=== PATIENT | male | born 1945 | race Caucasian/White ===

== ENCOUNTER → 2016-10-18 | Outpatient (CLI) | payer OTHER ==
[~2016-10-18] VITALS: Ht 190.5 cm; Wt 133.8 kg
[~2016-10-18] MED LIST: ACYCLOVIR400 MG PO; APRESOLINE100 MG PO; BYSTOLIC10 MG PO; CARVEDILOL25 MG PO; CELEBREX200 MG PO; FUROSEMIDE40 MG PO; LISINOPRIL40 MG PO; PANTOPRAZOLE SO40 MG PO; PRAVASTATIN SOD80 MG PO; SIMVASTATIN40 MG PO
== END | disposition home or self-care (01) ==
LOC: AMB 11:42
DX: K22.70 Barrett's esophagus without dysplasia (principal); K21.9 Gastro-esophageal reflux disease without esophagitis; Z86.010 Personal history of colon polyps; I11.0 Hypertensive heart disease with heart failure; I50.9 Heart failure, unspecified; I25.10 Atherosclerotic heart disease of native coronary artery without angina pectoris; I25.2 Old myocardial infarction; Z80.0 Family history of malignant neoplasm of digestive organs; Z87.891 Personal history of nicotine dependence; Z79.899 Other long term (current) drug therapy
CPT/HCPCS: 88305; 93005; C1726; J2250

== ENCOUNTER 2017-09-03 08:22 | Emergency (ER) | payer OTHER ==
[~2017-09-03] VITALS: Ht 190.5 cm; Wt 130.2 kg
[2017-09-03] MEDS ORDERED: PERCOCET 5/31 TABLET PO (11:28)
[2017-09-03] MEDS ORDERED: MEDROL DOSEPAK4 MG PO (11:28)
[2017-09-03 12:14] VITALS: BP 153/79
== END 2017-09-03 12:15 | disposition home or self-care (01) ==
LOC: EME 08:22
DX: M51.17 Intervertebral disc disorders with radiculopathy, lumbosacral region (principal); J44.9 Chronic obstructive pulmonary disease, unspecified; E78.5 Hyperlipidemia, unspecified; Z87.891 Personal history of nicotine dependence
CPT/HCPCS: 72148; 99281; 99284; J1885; J7512

== ENCOUNTER 2017-09-18 10:40 | Day surgery (SDC) | payer OTHER ==
[~2017-09-18] VITALS: Ht 190.5 cm; Wt 126.8 kg
[~2017-09-18 10:40] MED LIST changes: +MEDROL DOSEPAK4 MG PO; +PERCOCET 5/31 TABLET PO
[2017-09-18 11:48] VITALS: BP 155/89
[2017-09-18 17:42] VITALS: BP 154/72
[2017-09-18 18:15] VITALS: BP 142/79
== END 2017-09-18 18:22 | disposition home or self-care (01) ==
LOC: SDC 10:40
DX: M51.16 Intervertebral disc disorders with radiculopathy, lumbar region (principal); M47.816 Spondylosis without myelopathy or radiculopathy, lumbar region; M48.061 Spinal stenosis, lumbar region without neurogenic claudication; I10 Essential (primary) hypertension; E78.00 Pure hypercholesterolemia, unspecified; J84.10 Pulmonary fibrosis, unspecified; J44.9 Chronic obstructive pulmonary disease, unspecified; I25.2 Old myocardial infarction; Z87.891 Personal history of nicotine dependence; Z79.82 Long term (current) use of aspirin
CPT/HCPCS: 71046; 72020; 76000; J0131; J0330; J0690; J1100; J1170; J1885; J2405; J2710; J3010; J7643